=== PATIENT | female | born 1990 | race Two or more races ===

== ENCOUNTER 2017-09-27 08:22 | Day surgery (SDC) | payer OTHER ==
[2017-09-26 13:05] LABS: ABSOLUTE BASOPHILS # (AUTO) 0.1 10^3/uL (0.0-0.2); ABSOLUTE LYMPHOCYTES (AUTO) 1.4 10^3/uL (0.5-4.7); ABSOLUTE MONOCYTES (AUTO) 0.4 10^3/uL (0.1-1.4); ABSOLUTE NEUT (AUTO) 2.7 10^3/uL (1.7-8.2); BASOPHILS % (AUTO) 1.3 % (0-2); EOSINOPHILS % (AUTO) 0.9 % (0-6); HEMATOCRIT 38.9 % (36.0-47.0); HEMOGLOBIN 13.2 g/dL (12.0-15.5); LYMPHOCYTES % (AUTO) 30.9 % (13-45); MEAN CORPUSCULAR HEMOGLOBIN 29.3 pg (27.0-33.4); MEAN CORPUSCULAR HGB CONC 33.9 g/dL (32.0-36.0); MEAN CORPUSCULAR VOLUME 86 fl (80-97); MONOCYTES % (AUTO) 8.4 % (3-13); PLATELET COUNT 279 10^3/uL (150-450); RED CELL DISTRIBUTION WIDTH 12.9 % (11.5-14.0); SEGMENTED NEUTROPHILS % (AUTO) 58.5 % (42-78); TOTAL CELLS COUNTED % (AUTO) 100 %; WHITE BLOOD COUNT 4.7 10^3/uL (4.0-10.5)
[2017-09-26 13:20] LABS: APPEARANCE,URINE SLIGHTLY-CLOUDY; BILIRUBIN,URINE NEGATIVE (NEGATIVE); COLOR,URINE YELLOW; GLUCOSE, URINE NEGATIVE (NEGATIVE); KETONES,URINE NEGATIVE (NEGATIVE); LEUKOCYTE ESTERASE,URINE NEGATIVE (NEGATIVE); NITRITE,URINE NEGATIVE (NEGATIVE); PROTEIN,URINE NEGATIVE (NEGATIVE); URINE SPECIFIC GRAVITY 1.023; UROBILINOGEN,URINE NEGATIVE mg/dL (<2.0)
[~2017-09-27 08:22] MED LIST: CEFAZOLIN 1 GM/D5W RTU 1 GM/50 ML RTUPB IV PRN; RINGERS SOLUTION,LACTATED 1,000 ML IV PRN
[2017-09-27] MEDS ORDERED: MIDAZOLAM 2 MG/2 ML INJ ONE (08:45)
[2017-09-27] MEDS ORDERED: DIPHENHYDRAMINE HCL 50 MG/ML VIAL ONE (08:45)
[2017-09-27] MEDS ORDERED: FENTANYL CITRATE INJ/PF 100 MCG/2 ML AMPUL ONE (08:46)
[2017-09-27] MEDS ORDERED: KETOROLAC TROMETHAMINE 60 MG/2 ML SDV ONE (08:46)
[2017-09-27] MEDS ORDERED: PROPOFOL INJ 200 MG/20 ML VIAL IV ONE (08:46)
[2017-09-27] MEDS: LIDOCAINE 2% INJ (20 MG/ML) 20 ML MDV ONE ×2 (09:20)
[2017-09-27] MEDS: BUPIVACAINE HCL 0.5 % INJ/PF 30 ML SDV ONE ×2 (09:20)
[2017-09-27] MEDS ORDERED: THROMBIN (BOVINE) TOPICAL 5000 UNIT VIAL ONE (10:30)
--- NOTE | 2017-09-27 11:49 | [facility]ARE OPERATIVE REPORT E ---
[facility] NAME: KRISTY ABRAHAM AGE: 27Y DATE OF SURGERY: 09/27/2017 ROOM: PREOPERATIVE DIAGNOSIS: HALLUX ABDUCTO VALGUS DEFORMITY, RIGHT FOOT. POSTOPERATIVE DIAGNOSIS: HALLUX ABDUCTO VALGUS DEFORMITY, RIGHT FOOT. OPERATION: Bicorrectional *------* osteotomy, first metatarsal head, with external fixation utilizing 0.062 K-wire. SURGEON: JAMES SERNA D.P.M. ANESTHESIA: @ INTRAOPERATIVE FINDINGS: 1. Indicated subluxation of the first metatarsophalangeal joint. 2. The articular facets were in a very healthy state. There were no arthritic changes seen into the joint. 3. There was a small bleeder encountered during the surgery. The bleeding was controlled by packing the surgical area with thrombin and Gelfoam. ESTIMATED BLOOD LOSS: About 150 mL. PROCEDURE: With the patient laying in the dorsal recumbent position, right foot and leg were prepped and draped in the usual standard, sterile orthopedic manner. After the blood was exsanguinated from the right foot, the leg was brought to the level of the table. Attention was directed right over the first metatarsophalangeal joint. A curvilinear incision was placed right over the joint. The initial incision was deepened. The superficial and deep subcutaneous tissues were dissected through blunt and sharp dissection. This dissection was carried until the capsular structures were brought into the surgical field. By this time, all bleeders were ligated. All vital structures were identified and protected from surgical trauma. Next, an L inverted capsulotomy was performed. The long arm of the capsulotomy was placed medial and adjacent to the extensor hallucis longus tendon. The short arm was placed right over the joint and ran in the medial inferior direction. Capsule and periosteal structures were dissected to bone, and the head of the first metatarsal was brought into the surgical field. At this point, the hypertrophic portion, which was the medial eminence of the first metatarsal head, was resected and the head was remodeled into a more normal anatomical configuration. At this point, the osteotomy to be performed was mapped on the bone. The osteotomy was performed in 2 planes. The first osteotomy was performed in the transverse plane. It was performed at the lower half of the head of the first metatarsal, and it was angulated about 45 degrees to the long axis of the first metatarsal. The second half of the osteotomy was performed in the sagittal plane. This was a closing wedge osteotomy, which extended to the osteotomy performed in the transverse plane. The apical portion of the closing wedge was on the lateral cortex. The angulation of the wedge was sufficient to derotate the articular facet of the first metatarsal. After the second half of the osteotomy was performed, the wedge was closed, and that aligned the articular facet with the long axis of the first metatarsal. After that, the head was shifted lateral-serna to decrease the angulation between the first and second metatarsal. With the metatarsal head in its new anatomical position, it was externally fixated with 0.062 K-wire. The direction of the K-wire was from medial proximal to lateral distal direction. The wire crossed the osteotomy and compacted it, and at this point, precautions were taken not to have the wire protruding into the joint. Next, intraoperative x-rays were obtained to document the surgical correction of the osteotomy, and also to assure the proper fixation was accomplished. The x-rays were reviewed and the correction was extremely satisfactorily. At this point, the protruding wedge of bone on the medial distal aspect of the first metatarsal was resected. Next, right ankle pneumatic tourniquet was deflated, and circulation to the right foot returned to normal immediately, as the normal digital color and temperature became apparent. At this point, the surgical area was irrigated with copious amounts of sterile saline solution. Prior to the closure of the capsule, there was a bleeder encountered, which did not respond to the coagulation with the Bovie. The area had to be packed with Gelfoam and thrombin, which did slow the bleeding significantly. After that, the capsular structures were closed with 2-0 Vicryl. Next, the subcutaneous tissues from deep to superficial were closed with 3-0 Vicryl. Finally, the skin edges were repositioned and closed with 4-0 nylon using continuous interlocked stitch. Next, Betadine compression dressing was applied around the surgical area, which was followed with an Ollie bandage and a surgical shoe. This patient tolerated the procedures well and left the operating room with stable vital signs and in good condition. Patient was taken to the recovery room alert, conscious and oriented. There are no permanent disabilities anticipated at this time. The immediate postoperative recovery was also very uneventful. Patient was sent home with instructions for postoperative care at home. Patient was given pain medicine and antibiotics to take postoperatively, and the patient was instructed how to take the postoperative medications. Patient is to resume normal dietary habits. The first postoperative dressing was also set for 72 hours. Patient was instructed to ambulate with crutches, without bearing any weight on the right foot. DICTATING PHYSICIAN: JAMES SERNA D.P.M. [id number] Y#: [id number] ID: [id number] JOB#: [id number] ACCT: [id number] cc:JAMES SERNA D.P.M. >
--- NOTE | 2017-09-27 13:34 | RADIOLOGY REPORT (SQ) ---
EXAM DESCRIPTION: FOOT RIGHT 2 VIEWS COMPLETED DATE/TIME: 09/27/2017 11:51 am REASON FOR STUDY: OSTEOTOMY IST TOE RT FOOT ASST WITH FLUORO IN OR M20.11 HALLUX VALGUS (ACQUIRED), RIGHT FOOT COMPARISON: None. FLUOROSCOPY TIME: 0.03 seconds 2 images saved to PACS. TECHNIQUE: Intra-operative images acquired during surgical procedure to evaluate progress. NUMBER OF IMAGES: 2 images LIMITATIONS: None. FINDINGS: Fluoroscopic images were obtained during internal fixation of a hallux valgus. Please ref er to the surgeon's operative report for additional information. IMPRESSION: IMAGE(S) OBTAINED DURING PROCEDURE. COMMENT: Quality ID [id number]: Final reports for procedures using fluoroscopy that document radiation exp osure indices, or exposure time and number of fluorographic images (if radiation exposure indices are not available) Please consult full operative report of the attending physician for description of the procedure. TECHNICAL DOCUMENTATION: JOB ID: [id number] 1926 [employer]- All Rights Reserved Reading location - IP/workstation name: [email or web address]
--- NOTE | 2017-09-27 13:34 | RADIOLOGY REPORT (SQ) ---
EXAM DESCRIPTION: NO CHG FLUORO COMPLETE DATE/TIME: 09/27/2017 11:51 am REASON FOR STUDY: OSTEOTOMY IST TOE RT FOOT ASST WITH FLUORO IN OR M20.11 HALLUX VALGUS (ACQUIRED), RIGHT FOOT FINDINGS: Please see combined report for performance of procedure and radiologic supervision and int erpretation. IMPRESSION: Please see combined report for performance of procedure and radiologic supervision and i nterpretation. Reading location - IP/workstation name: [email or web address]
== END 2017-09-27 12:09 | disposition home or self-care (01) ==
LOC: SC 08:22
PROVIDERS: ATTEND Podiatrist Foot & Ankle Surgery
PROC: 0QSN04Z Reposition Right Metatarsal with Internal Fixation Device, Open Approach (ICD-10-PCS; principal; 2017-09-27 09:15)
DX: M20.11 Hallux valgus (acquired), right foot (principal)
CPT/HCPCS: 36415; 85025; 81001; 73620; 28306; C1713; J2250; J3490 ×3; J0690; J1200; J1885; J3010; J2704; 01480